=== PATIENT | male | born 1995 | race Hispanic/Latino ===

== ENCOUNTER 2017-11-10 17:16 | Inpatient (IN) | payer SELFPAY ==
[~2017-11-10] VITALS: Ht 182.9 cm; Wt 141.1 kg
[2017-11-10 18:36] LABS: BASOPHILS # (AUTO) 0.1 (0.0-0.1); BASOPHILS % 0.8 % (0.0-1.0); EOSINOPHILS # (AUTO) 0.1 (0.0-0.4); EOSINOPHILS % 1.3 % (0.0-6.0); HEMATOCRIT 48.1 % (38.2-49.6); HEMOGLOBIN 15.8 g/dL (14.0-18.0); LYMPHOCYTES # (AUTO) 2.2 (1.0-3.2); LYMPHOCYTES % 23.4 % (18.0-39.1); MEAN CORPUSCULAR HEMOGLOBIN 27.8 pg (28-32); MEAN CORPUSCULAR HGB CONC 32.8 g/dL (31-35); MEAN CORPUSCULAR VOLUME 84.5 fL (81-99); MONOCYTES # (AUTO) 0.6 (0.2-0.8); MONOCYTES % 6.7 % (4.4-11.3); NEUTROPHILS # (AUTO) 6.3 (2.1-6.9); NEUTROPHILS % 67.4 % (38.7-80.0); PLATELET COUNT 327 x10e3/uL (140-360); RED BLOOD COUNT 5.69 x10e6/uL (4.3-5.7); RED CELL DISTRIBUTION WIDTH 13.7 % (11.7-14.4)
[2017-11-10 18:49] LABS: BILIRUBIN,URINE NEGATIVE (NEGATIVE); CLARITY,URINE CLEAR (CLEAR); COLOR,URINE YELLOW (YELLOW); KETONES,URINE NEGATIVE (NEGATIVE); LEUKOCYTE ESTERASE ,URINE TRACE (NEGATIVE); NITRITE,URINE NEGATIVE (NEGATIVE); PROTEIN,URINE DIPSTICK NEGATIVE (NEGATIVE); URINE UROBILINOGEN 0.2 mg/dL (0.2 - 1)
[2017-11-10 18:56] LABS: BACTERIA,URINE MODERATE /HPF; RBC,URINE 0-5 /HPF (0-5)
[2017-11-10 19:00] LABS: ALANINE AMINOTRANSFERASE 23 IU/L (0-55); ALBUMIN/GLOBULIN RATIO 0.9 (0.8-2.0); ALKALINE PHOSPHATASE 169 IU/L (40-150); ANION GAP 17.6 mmol/L (8-16); BLOOD UREA NITROGEN 12 mg/dL (7-26); BUN/CREATININE RATIO 14 (6-25); CALCIUM 10.1 mg/dL (8.4-10.2); CARBON DIOXIDE 24 mmol/L (22-29); CHLORIDE 101 mmol/L (98-107); CREATININE, SERUM 0.88 mg/dL (0.72-1.25); EST GLOMERULAR FILTRATION RATE > 60 ML/MIN (60-); GLUCOSE 80 mg/dL (74-118); POTASSIUM 3.6 mmol/L (3.5-5.1); SODIUM 139 mmol/L (136-145)
[2017-11-10] MEDS ORDERED: PIPER-TAZ 3.375 GM 50 ML IV STA (20:41)
[2017-11-10] MEDS ORDERED: PIPER-TAZ 3.375 GM 50 ML IV SCH (21:00)
[2017-11-10] MEDS: SODIUM CHLORIDE 0.9% 1000ML 1,000 ML IV SCH (21:10)
--- NOTE | 2017-11-10 21:26 | Diagnostic Imaging Report ---
EXAM: CT ABDOMEN AND PELVIS without IV CONTRAST INDICATION: UTI, right flank pain COMPARISON: None TECHNIQUE: The abdomen and pelvis were scanned using a multidetector helical scanner. Coronal and sagittal reformations were obtained. Dose modulation, iterative reconstruction, and/or weight based adjustment of the mA/kV was utilized to reduce the radiation dose to as low as reasonably achievable. Renal stone protocol performed. IV Contrast: None Oral Contrast: None CTDIvol has been reviewed. It is below the limits set by the Radiation Protocol Committee (RPC). FINDINGS: LOWER THORAX: No consolidations LIVER: No masses BILIARY: Normal gallbladder. No ductal dilation. SPLEEN: No masses PANCREAS: No masses ADRENALS: No nodules RIGHT KIDNEY: No nephroureterolithiasis or hydronephrosis. Minimal fat stranding and edematous appearance of the renal cortex. LEFT KIDNEY: No nephroureterolithiasis or hydronephrosis. GI TRACT: No wall thickening or obstruction. Normal appendix. VESSELS: Unremarkable PERITONEUM/RETROPERITONEUM: No free air or fluid LYMPH NODES: No lymphadenopathy REPRODUCTIVE ORGANS: Normal BLADDER: Normal SOFT TISSUES: Normal BONES: No suspicious bone lesions. IMPRESSION: Minimal fat stranding and edematous appearance of the right renal cortex. This would be consistent with pyelonephritis given provided history. No nephroureterolithiasis or hydronephrosis. Signed by: Dr. Katlyn Harp M.D. on 11/10/2017 9:23 PM
[2017-11-10 23:30] VITALS: BP 149/84
[2017-11-11] MEDS: SODIUM CHLORIDE 0.9% 1000ML 1,000 ML IV SCH ×3 (03:05→20:22)
[2017-11-11 04:00] VITALS: BP 134/64
[2017-11-11 05:24] LABS: BASOPHILS # (AUTO) 0.1 (0.0-0.1); BASOPHILS % 0.8 % (0.0-1.0); EOSINOPHILS # (AUTO) 0.2 (0.0-0.4); EOSINOPHILS % 1.8 % (0.0-6.0); HEMATOCRIT 44.2 % (38.2-49.6); HEMOGLOBIN 14.6 g/dL (14.0-18.0); LYMPHOCYTES # (AUTO) 2.4 (1.0-3.2); MEAN CORPUSCULAR HEMOGLOBIN 27.8 pg (28-32); MEAN CORPUSCULAR VOLUME 84.2 fL (81-99); MONOCYTES # (AUTO) 0.7 (0.2-0.8); MONOCYTES % 7.8 % (4.4-11.3); NEUTROPHILS # (AUTO) 5.9 (2.1-6.9); NEUTROPHILS % 63.2 % (38.7-80.0); PLATELET COUNT 288 x10e3/uL (140-360); RED BLOOD COUNT 5.25 x10e6/uL (4.3-5.7); RED CELL DISTRIBUTION WIDTH 13.7 % (11.7-14.4)
[2017-11-11 06:02] LABS: ALANINE AMINOTRANSFERASE 17 IU/L (0-55); ALBUMIN 3.4 g/dL (3.5-5.0); ALKALINE PHOSPHATASE 138 IU/L (40-150); ANION GAP 15.8 mmol/L (8-16); BLOOD UREA NITROGEN 12 mg/dL (7-26); BUN/CREATININE RATIO 14 (6-25); CALCIUM 8.7 mg/dL (8.4-10.2); CARBON DIOXIDE 24 mmol/L (22-29); CHLORIDE 106 mmol/L (98-107); CREATININE, SERUM 0.85 mg/dL (0.72-1.25); EST GLOMERULAR FILTRATION RATE > 60 ML/MIN (60-); GLUCOSE 105 mg/dL (74-118); POTASSIUM 3.8 mmol/L (3.5-5.1); SODIUM 142 mmol/L (136-145)
[2017-11-11] MEDS: PIPER-TAZ 3.375 GM 50 ML IV SCH ×3 (06:26→22:00)
[2017-11-11 08:00] VITALS: BP 126/58
[2017-11-11 08:39] VITALS: BP 126/58
--- NOTE | 2017-11-11 08:58 | History and Physical ---
CHIEF COMPLAINT: Right-sided flank pain with dark-color urine since last 3 to 4 days. HISTORY OF PRESENT MEDICAL ILLNESS: A 21-year-old pleasant male with past medical history of no medical problems who was admitted at [facility] with above complaints yesterday. The patient was seen in my office about a couple of days back with above complaints. The patient apparently had right flank pain associated with dark-color urine for last 4 to 5 days. Symptoms got better about a couple of days back when the patient came to my office, the patient had urine and he had UA and C and S done which showed multidrug-resistant Klebsiella pneumoniae in urine and hence the patient was sent to ER yesterday. In the emergency room, the patient was seen by emergency doctor and admitted for IV antibiotics. At present, the patient is lying comfortably in bed. No apparent distress. No chest pain. No shortness of breath. No nausea, vomiting, diarrhea. No abdominal pain. No loss of consciousness or palpitations. No headaches. No hematemesis. No melena. No hematuria or dysuria. No fever, no cough. No witnessed seizures. PAST MEDICAL HISTORY: None. MEDICATIONS: None. SURGICAL HISTORY: None. SOCIAL HISTORY: No smoking, no alcohol, no illicit drug use. Lives with family. FAMILY HISTORY: Father has hypertension, diabetes mellitus. ALLERGIES: PENICILLIN AND AMOXICILLIN. REVIEW OF SYSTEMS: As per HPI. PHYSICAL EXAMINATION GENERAL: The patient is alert, awake, oriented times 3. No apparent distress. Lying in bed. VITALS: Temperature is 98, pulse is 86 per minute, respiratory rate 16 per minute, blood pressure is 134/76, saturation is 98%. SKIN: No cyanosis, no icterus, no pallor. HEENT: Normocephalic, atraumatic. PERRLA. NECK: Soft, supple. No JVD. No lymphadenopathy. LUNGS: Air entry bilaterally equal. HEART: S1, S2. No murmur, gallop or rub. ABDOMEN: Soft, nontender. Bowel sounds present. 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 No focal deficit. EXTREMITIES: No clubbing. No edema palpable. No calf pain. LABS: White count 9.3, hemoglobin 14.6, hematocrit 44.2, platelet 288,000. Sodium 142, potassium 3.8, chloride 107, bicarb 24, BUN 12, creatinine 0.8, glucose 105, LFTs noted. Urine: WBC 11 to 20, blood trace, leukocyte esterase trace. CT abdomen and pelvis shows minimal fat stranding and edematous appearance of right renal cortex. This would be considered pyelonephritis. ASSESSMENT: Pyelonephritis with multidrug resistant Klebsiella in urine. PLAN: Admit the patient to medical floor. Zosyn 3.375 g IV q.8 h. Panculture. ID consultation, Dr. Arguello. IV fluids. Further care and treatment as per the clinical course of the patient in the hospital. Discussed with the patient at length. Job#: [id number] MANGO
[2017-11-11 12:06] VITALS: BP 134/65
--- NOTE | 2017-11-11 15:11 | Consultation ---
DATE OF CONSULTATION: REASON FOR CONSULTATION: UTI. HISTORY OF PRESENT ILLNESS: This patient is a 21-year-old male who denies past medical history. He comes in with right-sided flank pain, fever, chills, urgency and frequency. He said this is the 2nd time. The first time was a few weeks ago. The patient was admitted. Infectious disease was consulted. He is currently lying in bed comfortably. PAST MEDICAL HISTORY: He denies. PAST SURGICAL HISTORY: He denies. ALLERGIES: NKA. SOCIAL HISTORY: There is no smoking, drug abuse or alcohol use. FAMILY HISTORY: Otherwise unremarkable. REVIEW OF SYSTEMS HEENT: Negative. PULMONARY: Negative. CARDIAC: Negative. : Urgency and frequency. SKIN: There are no rashes. LABORATORY DATA: Urine showed gram-negative rods. He had a CT of the abdomen and pelvis that showed pyelonephritis of the kidney on the right. PHYSICAL EXAMINATION GENERAL: He is currently alert and oriented, does not seem to be in acute distress. VITALS: Stable, currently afebrile. HEENT: Not icteric. NECK: Supple. CHEST: Clear. HEART: S1 and S2. No murmur. ABDOMEN: Soft. Bowel sounds present. EXTREMITIES: No edema. No skin rash. IMPRESSION AND PLAN: Urinary tract infection, second time in the last 2 months. Agree with urine cultures. Agree with Zosyn. His urine showed gram negative. May need urological evaluation. Will discuss with the patient. Will follow with you. Job#: [id number]
[2017-11-11 16:05] VITALS: BP 126/67
[2017-11-11 19:25] VITALS: BP 133/62
[2017-11-12] VITALS (8 sets, daily range): BP systolic 105–125; BP diastolic 59–80
[2017-11-12] MEDS: SODIUM CHLORIDE 0.9% 1000ML 1,000 ML IV SCH ×3 (05:12→21:57)
[2017-11-12] MEDS: PIPER-TAZ 3.375 GM 50 ML IV SCH ×3 (05:37→22:00)
[2017-11-12] MEDS ORDERED: SODIUM CHLORIDE 0.9% 100 ML 100 ML ONE (14:28)
[2017-11-13] VITALS (7 sets, daily range): BP systolic 116–135; BP diastolic 59–83
[2017-11-13] MEDS: SODIUM CHLORIDE 0.9% 1000ML 1,000 ML IV SCH ×2 (06:30→14:15)
[2017-11-13] MEDS: PIPER-TAZ 3.375 GM 50 ML IV SCH ×3 (06:55→22:15)
[2017-11-14] MEDS: SODIUM CHLORIDE 0.9% 1000ML 1,000 ML IV SCH ×2 (00:12→06:15)
[2017-11-14 00:33] VITALS: BP 124/73
[2017-11-14 05:23] VITALS: BP 101/57
[2017-11-14] MEDS: PIPER-TAZ 3.375 GM 50 ML IV SCH ×2 (05:35→15:22)
[2017-11-14 08:13] VITALS: BP 96/51
[2017-11-14 11:54] VITALS: BP 93/45
[2017-11-14 16:12] VITALS: BP 126/83
== END 2017-11-14 17:00 | disposition home or self-care (01) | DRG 690 ==
LOC: ER 17:16 → ERHOLD 21:15 → MED/SURG 21:22 → MED/SURG2 11-12 15:25 → UNDODISIN 11-13 04:27
PROVIDERS: ADMIT Internal Medicine; ATTEND Internal Medicine
DX: N10 Acute pyelonephritis (principal); B96.1 Klebsiella pneumoniae [K. pneumoniae] as the cause of diseases classified elsewhere; Z16.24 Resistance to multiple antibiotics; Z88.0 Allergy status to penicillin
CPT/HCPCS: 36415; 74176; 80053; 81001; 85025; 87040; 87086; 87186; 87205; 87491; 87591; 99284; J2543; J7030